=== PATIENT | male | born 1960 | race Native Hawaiian/Other Pacific Islander ===

== ENCOUNTER 2017-06-16 08:37 | Outpatient (CLI) | payer BC ==
[~2017-06-16 08:37] MED LIST: COUMADIN6 MG PO; DEMADEX10 MG PO; GABA100C2 PO; HYDR-2748 PO; HYDR25TA15 PO; ROSU10TA PO; WARFARIN10 MG PO; WARFARIN3 MG PO; WARFARIN5 MG PO; ZESTRIL40 MG OR
== END 2017-06-16 22:47 | disposition home or self-care (01) ==
LOC: RAD 08:37
DX: R76.11 Nonspecific reaction to tuberculin skin test without active tuberculosis (principal)

== ENCOUNTER 2017-09-16 08:35 | Emergency (ER) | payer BC ==
[~2017-09-16] VITALS: Ht 180.3 cm; Wt 168.3 kg
[2017-09-16 08:40] VITALS: TEMP 98.2
[2017-09-16 09:22] LABS: POTASSIUM 4.4 mmol/L (3.6-5.2)
[2017-09-16 09:24] LABS: PLATELET COUNT 175 K/uL (142-355)
[2017-09-16 09:43] VITALS: BP 136/88
== END 2017-09-16 09:51 | disposition home or self-care (01) ==
LOC: ED 08:35
PROVIDERS: Family Medicine
DX: I16.0 Hypertensive urgency (principal); H93.13 Tinnitus, bilateral
CPT/HCPCS: 36415; 80048; 85027; 96374; 99284; J3490

== ENCOUNTER 2018-07-24 12:02 | Outpatient (CLI) | payer BC | END 2018-07-24 19:14 | disposition home or self-care (01) | LOC: RAD 12:02 | DX: R76.11 Nonspecific reaction to tuberculin skin test without active tuberculosis (principal) ==

== ENCOUNTER 2019-08-16 08:40 | Outpatient (CLI) | payer BC | END 2019-08-16 21:07 | disposition home or self-care (01) | LOC: RAD 08:40 | DX: Z11.1 Encounter for screening for respiratory tuberculosis (principal) ==

== ENCOUNTER 2019-10-11 08:45 | Outpatient (CLI) | payer BC | END 2019-10-11 19:20 | disposition home or self-care (01) | LOC: RESP 08:45 | DX: I10 Essential (primary) hypertension (principal) | CPT/HCPCS: 93306 ==

== ENCOUNTER 2020-03-25 17:52 | Outpatient (CLI) | payer OTHER | END 2020-03-25 23:08 | disposition home or self-care (01) | LOC: CT 17:52 | DX: I10 Essential (primary) hypertension (principal) ==

== ENCOUNTER 2020-08-08 10:19 | Outpatient (CLI) | payer BC | END 2020-08-08 21:22 | disposition home or self-care (01) | LOC: RAD 10:19 | PROVIDERS: ATTEND Nurse Practitioner Family | DX: R76.11 Nonspecific reaction to tuberculin skin test without active tuberculosis (principal) ==

== ENCOUNTER 2021-01-14 13:51 | Outpatient (CLI) | payer BC | END 2021-01-14 18:00 | disposition home or self-care (01) | LOC: LABW 13:51 | PROVIDERS: ATTEND Nurse Practitioner Family | DX: R05 Cough (principal); R50.9 Fever, unspecified; R53.83 Other fatigue; R43.0 Anosmia; Z11.52 Encounter for screening for COVID-19 | CPT/HCPCS: 87635; G2023; U0003 ==

== ENCOUNTER 2021-07-02 09:19 | Outpatient (CLI) | payer BC | END 2021-07-02 20:20 | disposition home or self-care (01) | LOC: CT 09:19 | PROVIDERS: ATTEND Nurse Practitioner Family | DX: G57.93 Unspecified mononeuropathy of bilateral lower limbs (principal); M54.30 Sciatica, unspecified side; M54.50 Low back pain, unspecified; R29.898 Other symptoms and signs involving the musculoskeletal system ==

== ENCOUNTER 2021-08-10 15:54 | Outpatient (CLI) | payer BC | END 2021-08-10 22:07 | disposition home or self-care (01) | LOC: RAD 15:54 | PROVIDERS: ATTEND Nurse Practitioner Family | DX: R76.11 Nonspecific reaction to tuberculin skin test without active tuberculosis (principal) ==

== ENCOUNTER 2021-11-26 11:36 | Emergency (ER) | payer BC ==
[~2021-11-26] VITALS: Ht 180.3 cm; Wt 183.3 kg
[2021-11-26 11:40] VITALS: BP 125/77; TEMP 98.5
== END 2021-11-26 12:45 | disposition home or self-care (01) ==
LOC: ED 11:36
DX: S70.312A Abrasion, left thigh, initial encounter (principal); X58.XXXA Exposure to other specified factors, initial encounter; Y92.89 Other specified places as the place of occurrence of the external cause
CPT/HCPCS: 90471; 90715; 99282

== ENCOUNTER → 2022-07-01 | Outpatient (CLI) | payer BC | LOC: CT 14:34 | PROVIDERS: ATTEND Nurse Practitioner Family | DX: R31.9 Hematuria, unspecified (principal); M54.89 Other dorsalgia; R11.0 Nausea ==